=== PATIENT | male | born 1960 | race Caucasian/White ===

== ENCOUNTER 2020-10-23 13:34 | Emergency (ER) | payer OTHER ==
[2020-10-23] MEDS ORDERED: TAMSULOSIN 0.4 MG CAP.ER.24H PO STA (13:56)
[2020-10-23] MEDS ORDERED: LIDOCAINE URO-JET JELLY 2% 5 ML KIT URETHRAL ONE (13:57)
[2020-10-23] MEDS ORDERED: SODIUM CHLORIDE 0.9% 500 ML 500 ML IV STA (14:02)
--- NOTE | 2020-10-23 14:08 | ED ---
Male Urogenital HPI - General Chief complaint: Urogenital Stated complaint: unable to urinate Source: patient, family, RN notes reviewed Mode of arrival: ambulatory Limitations: no limitations - History of Present Illness Initial comments: 59-year-old male gentleman, well-appearing, oriented 4, presents to the emergency room with complaints of inability to urinate since this morning at 0700. Patient states last urinated last night before bed without difficulty. Patient states that his bladder feels full however he is able to get his flow going. Patient states yesterday he was fine with no problems urinating, no hematuria.. Denies any trauma denies any back pain. Patient states this is never happened to him before. He has no penile discharge and no testicular pain . He says it is uncomfortable sit down he feels like he needs to stand. During assessment patient was able to urinate a small amount into a towel teeth him some relief. prior to this urination he had 750 mL by bladder scan per the RN. Patient has a history of hypertension and takes lisinopril. denies any prostate issues, no history of abdominal surgical procedures in the past. Denies history of the stones. he is pack-a-day smoker since age 16. MD Complaint: other (Urinary retention) -: hour(s) (this morning 0700) Location: penis, abdomen (Bladder) Radiation: none Severity scale (1-10): 4 Quality: other (Fullness) Consistency: constant Improves with: urination, other (Standing) Worsens with: other (Sitting) Reports: other (Urinary retention) - Related Data Home Medications Medication Instructions Recorded Confirmed [id number] 2 tab PO Q4HR PRN 10/23/20 10/23/20 [Excedrin] Lisinopril-Hctz 20-12.5 mg 1 tab PO HS 10/23/20 10/23/20 [Zestoretic 20-12.5] Previous Rx's Medication Instructions Recorded Tamsulosin [Flomax] 0.4 mg PO DAILY #7 cap 10/23/20 Allergies Allergy/AdvReac Type Severity Reaction Status Date / Time No Known Allergies Allergy Verified 10/23/20 14:28 Review of Systems ROS Statement: Those systems with pertinent positive or pertinent negative responses have been documented in the HPI. ROS Other: All systems not noted in ROS Statement are negative. Past Medical History Past Medical History: Hypertension History of Any Multi-Drug Resistant Organisms: None Reported Past Surgical History: No Surgical Hx Reported Past Psychological History: No Psychological Hx Reported Smoking Status: Current every day smoker Past Alcohol Use History: None Reported Past Drug Use History: None Reported General Exam Limitations: no limitations General appearance: alert, other (Uncomfortable ambulating in room) Head exam: Present: atraumatic, normocephalic, normal inspection Eye exam: Present: normal appearance, PERRL, EOMI. Absent: scleral icterus, conjunctival injection, nystagmus, periorbital swelling, periorbital tenderness Pupils: Present: normal accommodation ENT exam: Present: normal exam, normal oropharynx, mucous membranes moist Neck exam: Present: normal inspection, full ROM. Absent: tenderness, meningismus, lymphadenopathy, thyromegaly Respiratory exam: Present: normal lung sounds bilaterally. Absent: respiratory distress, wheezes, rales, rhonchi, stridor, chest wall tenderness, accessory muscle use, decreased breath sounds, prolonged expiratory Cardiovascular Exam: Present: regular rate, normal rhythm, normal heart sounds. Absent: systolic murmur, diastolic murmur, rubs, gallop, clicks GI/Abdominal exam: Present: soft, normal bowel sounds. Absent: distended, tenderness, guarding, rebound, rigid exam: Present: normal inspection. Absent: testicular tenderness, urethral discharge, scrotal swelling Extremities exam: Present: normal inspection, full ROM, normal capillary refill. Absent: tenderness, pedal edema, joint swelling, calf tenderness Back exam: Present: normal inspection, full ROM. Absent: tenderness, CVA tenderness (R), CVA tenderness (L), muscle spasm, paraspinal tenderness, vertebral tenderness, rash noted Neurological exam: Present: alert, oriented X3, CN II-XII intact, normal gait Psychiatric exam: Present: normal affect, normal mood Skin exam: Present: warm, dry, intact, normal color. Absent: rash, cyanosis, diaphoretic, erythema, petechiae, pallor, mottled Course Vital Signs 10/23/20 13:36 Temperature 97.4 F L Pulse Rate 107 H Respiratory 20 Rate Blood Pressure 176/111 O2 Sat by Pulse 96 Oximetry Medical Decision Making - Medical Decision Making CBC is within normal limits, UA shows small amount of blood with 13 RBCs but no WBCs. Magnesium is 2.0, BUN of 9 and creatinine is 0.56. Patient has relief with the catheter placed denies any pain in his comfort and the bladder. There is no penile discharge. Patient denies any testicular pain. He has no CVA tenderness. No reports of fever. Patient denies any inguinal pain. No inguinal or umbilical hernia noted. There is no testicular pain or swelling. positive cremasteric reflex bilaterally. Patient will with a leg bag, Flomax, and a referral to urology with strict instructions to return if no urine output in the leg bag, fever, or increasing pain. Butts catheter draining clear yellow urine at this time. Blood pressures 133/86 with a heart rate of 92. Patient feeling much better and ready to be discharged and is agreeable to the plan of care. Case discussed with Dr. Chairez. - Lab Data Result diagrams: 10/23/20 14:26 10/23/20 14:26 Lab Results 10/23/20 10/23/20 10/23/20 Range/Units 14:25 14:26 14:26 WBC 10.4 (3.8-10.6) k/uL RBC 5.40 (4.30-5.90) m/uL Hgb 16.5 (13.0-17.5) gm/dL Hct 46.8 (39.0-53.0) % MCV 86.7 (80.0-100.0) fL MCH 30.6 (25.0-35.0) pg MCHC 35.3 (31.0-37.0) g/dL RDW 13.3 (11.5-15.5) % Plt Count 277 (150-450) k/uL MPV 6.6 Neutrophils % 84 % Lymphocytes % 11 % Monocytes % 3 % Eosinophils % 1 % Basophils % 1 % Neutrophils # 8.7 H (1.3-7.7) k/uL Lymphocytes # 1.1 (1.0-4.8) k/uL Monocytes # 0.4 (0-1.0) k/uL Eosinophils # 0.1 (0-0.7) k/uL Basophils # 0.1 (0-0.2) k/uL Sodium 140 (137-145) mmol/L Potassium 4.4 (3.5-5.1) mmol/L Chloride 106 (98-107) mmol/L Carbon Dioxide 28 (22-30) mmol/L Anion Gap 6 mmol/L BUN (9-20) mg/dL Creatinine (0.66-1.25) mg/dL Est GFR (CKD-EPI)AfAm (>60 ml/min/1.73 sqM) Est GFR (CKD-EPI)NonAf (>60 ml/min/1.73 sqM) Magnesium 2.0 (1.6-2.3) mg/dL Urine Color Light Yellow Urine Appearance Clear (Clear) Urine pH 5.0 (5.0-8.0) Ur Specific Ava 1.007 (1.001-1.035) Urine Protein Negative (Negative) Urine Glucose (UA) Negative (Negative) Urine Ketones Negative (Negative) Urine Blood Small H (Negative) Urine Nitrite Negative (Negative) Urine Bilirubin Negative (Negative) Urine Urobilinogen <2.0 (<2.0) mg/dL Ur Leukocyte Esterase Negative (Negative) Urine RBC 13 H (0-5) /hpf Urine WBC <1 (0-5) /hpf Urine Mucus Rare H (None) /hpf 10/23/ Range/Units 14:26 WBC (3.8-10.6) k/uL RBC (4.30-5.90) m/uL Hgb (13.0-17.5) gm/dL Hct (39.0-53.0) % MCV (80.0-100.0) fL MCH (25.0-35.0) pg MCHC (31.0-37.0) g/dL RDW (11.5-15.5) % Plt Count (150-450) k/uL MPV Neutrophils % % Lymphocytes % % Monocytes % % Eosinophils % % Basophils % % Neutrophils # (1.3-7.7) k/uL Lymphocytes # (1.0-4.8) k/uL Monocytes # (0-1.0) k/uL Eosinophils # (0-0.7) k/uL Basophils # (0-0.2) k/uL Sodium (137-145) mmol/L Potassium (3.5-5.1) mmol/L Chloride (98-107) mmol/L Carbon Dioxide (22-30) mmol/L Anion Gap mmol/L BUN 9 (9-20) mg/dL Creatinine 0.56 L (0.66-1.25) mg/dL Est GFR (CKD-EPI)AfAm >90 (>60 ml/min/1.73 sqM) Est GFR (CKD-EPI)NonAf >90 (>60 ml/min/1.73 sqM) Magnesium (1.6-2.3) mg/dL Urine Color Urine Appearance (Clear) Urine pH (5.0-8.0) Ur Specific Ava (1.001-1.035) Urine Protein (Negative) Urine Glucose (UA) (Negative) Urine Ketones (Negative) Urine Blood (Negative) Urine Nitrite (Negative) Urine Bilirubin (Negative) Urine Urobilinogen (<2.0) mg/dL Ur Leukocyte Esterase (Negative) Urine RBC (0-5) /hpf Urine WBC (0-5) /hpf Urine Mucus (None) /hpf Disposition Clinical Impression: Urinary retention Disposition: HOME SELF-CARE Condition: Fair Instructions (If sedation given, give patient instructions): Urinary Retention in Men (ED), Butts Catheter Placement and Care (ED) Additional Instructions: Return to the emergency room with increasing pain, blood in your urine, fevers or no drainage from leg bag. Follow-up with urology Dr. Novoa next week. Take Flomax as prescribed. Please stop smoking Prescriptions: Tamsulosin [Flomax] 0.4 mg PO DAILY #7 cap Is patient prescribed a controlled substance at d/c from ED?: No Referrals: Yasir Kaminski MD [Primary Care Provider] - 1-2 days Manuel Novoa MD [STAFF PHYSICIAN] - 1-2 days Time of Disposition: 15:40
[2020-10-23 14:47] LABS: Appearance,Urine Clear (Clear); Bilirubin,Urine Negative (Negative); Blood,Urine Small (Negative); Color,Urine Light Yellow; Glucose,Urine (UA) Negative (Negative); Ketones,Urine Negative (Negative); Leukocyte Esterase,Urine Negative (Negative); Mucus,Urine Rare /hpf; Nitrite,Urine Negative (Negative); Protein,Urine Negative (Negative); RBC,Urine 13 /hpf (0-5); Specific Gravity,Urine 1.007 (1.001-1.035); Urobilinogen,Urine <2.0 mg/dL (<2.0); WBC,Urine <1 /hpf (0-5)
--- NOTE | 2020-10-23 14:56 | XR ---
EXAM: Abdomen radiograph. HISTORY: Pain and dysuria. TECHNIQUE: Upright AP view. COMPARISON: None available. FINDINGS: There are nondilated bowel loops with a nonobstructive pattern. There is a 3 mm radiodensity overlyin g the right hemipelvis. Otherwise no pathologic calcifications. No acute osseous abnormality seen. IMPRESSION: 3 mm radiodensity overlying the right hemipelvis. Recommend clinical correlation for radiopaque forei gn body. Otherwise no acute process.
[2020-10-23 15:03] LABS: Basophils # (A) 0.1 k/uL (0-0.2); Basophils % (A) 1 %; Eosinophils # (A) 0.1 k/uL (0-0.7); Eosinophils % (A) 1 %; HCT 46.8 % (39.0-53.0); HGB 16.5 gm/dL (13.0-17.5); Lymphocytes # (A) 1.1 k/uL (1.0-4.8); Lymphocytes % (A) 11 %; MCH 30.6 pg (25.0-35.0); MCHC 35.3 g/dL (31.0-37.0); MCV 86.7 fL (80.0-100.0); Mean Platelet Volume 6.6; Monocytes # (A) 0.4 k/uL (0-1.0); Monocytes % (A) 3 %; Neutrophils # (A) 8.7 k/uL (1.3-7.7); Neutrophils % (A) 84 %; Platelet Count 277 k/uL (150-450); RDW 13.3 % (11.5-15.5); WBC 10.4 k/uL (3.8-10.6)
[2020-10-23 15:11] LABS: Potassium 4.4 mmol/L (3.5-5.1)
[2020-10-23 15:36] LABS: African American GFR (CKD) >90 (>60 ml/min/1.73 sqM); Blood Urea Nitrogen 9 mg/dL (9-20); Non-African American GFR(CKD) >90 (>60 ml/min/1.73 sqM)
[2020-10-23 15:54] VITALS: TEMP 97
[2020-10-23 16:42] VITALS: BP 130/92; PULSE 88; RESP 17
== END 2020-10-23 16:36 | disposition home or self-care (01) ==
LOC: EC 13:34
DX: R33.9 Retention of urine, unspecified (principal); I10 Essential (primary) hypertension; F17.200 Nicotine dependence, unspecified, uncomplicated
CPT/HCPCS: 36415; 74018; 80051; 81001; 82565; 83735; 84520; 85025; 96360; 99283